=== PATIENT | female | born 1985 | race Caucasian/White ===

== ENCOUNTER 2016-06-28 08:39 | Emergency (ER) | payer MEDICAID ==
[~2016-06-28 08:39] MED LIST: ABILIFY5 MG PO; ALBUTEROL SULF8.5 GM IH; ALLERGY RELIEF10 M3 PO; CLONAZEPAM PO; CLONAZEPAM0.5 M2 PO; EFFEXOR XR37.5 MG; EFFEXOR37.5 MG; EXCEDRIN CAPLET1 TAB; EXCEDRIN TABLET1 TAB; FETZIMA40 M1 PO; HYDROXYZINE HCL50 MG PO; IBUPROFEN800 M1 PO; KLONOPIN0.5 M1 PO; LAMICTAL PO; LAMICTAL25 M2 PO; LEVAQUIN250 MG PO; NO HOME MEDICATION XX; NORCO 5-325 TA1 EACH PO; NORCO 5/325 TAB1 TAB PO; PAROXETINE; PAXIL30 MG PO; PRENATAL1 TAB; PROAIR HFA8.5 GM INH; PROVENTIL0.83 MG/ML IH; PROZAC20 M1 PO; PROZAC20 MG PO; REXULTI2 MG PO; ROBAXIN750 MG/TA1 PO; STRATTERA25 MG PO; VICODIN 5/500 T1 TAB PO; VIIBRYD40 MG PO
[2016-06-28] MEDS ORDERED: LAMICTAL100 M2 PO (08:42)
[2016-06-28] MEDS ORDERED: CATAPRES0.1 M1 PO (08:43)
[2016-06-28 09:40] LABS: BASO % 0.4 % (0-2); EOS % 2.8 % (0-7); EOSINOPHIL ABSOLUTE COUNT 0.2 tho/cmm (0.0-0.7); HCT-HEMATOCRIT 44.1 % (34.0-49.0); HGB-HEMOGLOBIN 15.2 gm/dl (12.0-15.5); IMMATURE GRANULOCYTES ABSOLUTE 0.01 tho/cmm (0-0.03); IMMATURE GRANULOCYTES PERCENT 0.2 % (0-0.3); LYMPH % 26.2 % (20-45); LYMPH ABSOLUTE COUNT 1.5 tho/cmm (0.8-4.5); MCHC MEAN CORPUSCULAR HGB CONC 34.5 % (32.0-36.0); MEAN PLATELET VOLUME 10.3 cmc (9.4-12.4); MONO % 4.6 % (0-12); MONOCYTE ABSOLUTE COUNT 0.3 tho/cmm (0.0-1.2); NEUTROPHIL ABSOLUTE COUNT 3.7 tho/cmm (1.6-8.0); NEUTROPHIL-AUTOMATED 3.7 tho/cmm (1.6-8.0); NEUTROPHILS % 65.8 % (40-80); PLATELET COUNT 205 tho/cmm (150-450); RED BLOOD COUNT 5.07 mil/cmm (4.00-5.20); RED CELL DISTRIBUTION WIDTH 13.4 % (12.4-16.4); WHITE BLOOD COUNT 5.7 tho/cmm (4.0-10.0)
[2016-06-28 09:47] LABS: ANION GAP 12 mmol/L (0-20); BLOOD UREA NITROGEN 8 mg/dl (6-24); CALCIUM 8.9 mg/dl (8.5-10.5); CARBON DIOXIDE-VENOUS 26 mmol/L (22-32); CHLORIDE 107 mmol/l (96-110); CREATININE 0.82 mg/dl (0.50-1.10); GLUCOSE 117 mg/dL (70-110); SODIUM 141 mmol/L (135-145); eGFR VALUE FOR BLACK >90 mL/Min
[2016-06-28 09:53] LABS: URINE BILIRUBIN NEGATIVE (NEG); URINE BLOOD SMALL (NEG); URINE GLUCOSE (UA) NEGATIVE (NEG); URINE KETONE NEGATIVE (NEG); URINE LEUKOCYTE ESTERASE POSITIVE (NEG); URINE NITRITE NEGATIVE (NEG); URINE PROTEIN NEGATIVE (NEG)
[2016-06-28 09:54] LABS: URINE APPEARANCE HAZY; URINE COLOR YELLOW
[2016-06-28 10:01] LABS: URINE WBC 15-20 /[HPF] (0-5)
[2016-06-28] MEDS ORDERED: OXYCODONE-ACET1 EAC3 PO (12:51)
[2016-07-12] MEDS ORDERED: HALOPERIDOL5 M1 PO (11:55)
[2016-07-12] MEDS ORDERED: PERCOCET 5-3251 EACH PO (11:55)
[2016-07-12] MEDS ORDERED: EXCEDRIN MIGRA1 EAC3 PO (11:56)
[2016-07-12] MEDS ORDERED: VENTOLIN HFA18 G2 PO (12:00)
[2016-09-08] MEDS ORDERED: ABILIFY5 M1 PO (17:45)
[2016-09-08] MEDS ORDERED: LEXAPRO10 M2 PO (17:45)
[2016-09-08] MEDS ORDERED: WELLBUTRIN XL150 M1 PO (17:46)
== END 2016-06-28 13:07 ==
LOC: EDMED 08:39
PROVIDERS: Emergency Medicine
DX: D27.0 Benign neoplasm of right ovary (principal); F17.210 Nicotine dependence, cigarettes, uncomplicated
CPT/HCPCS: Q9967

== ENCOUNTER 2016-07-14 08:59 | Day surgery (SDC) | payer MEDICAID ==
[~2016-07-14 08:59] MED LIST changes: +CATAPRES0.1 M1 PO; +EXCEDRIN MIGRA1 EAC3 PO; +HALOPERIDOL5 M1 PO; +LAMICTAL100 M2 PO; +OXYCODONE-ACET1 EAC3 PO; +PERCOCET 5-3251 EACH PO; +VENTOLIN HFA18 G2 PO
[2016-07-14 09:26] LABS: BASO % 0.3 % (0-2); EOS % 3.8 % (0-7); EOSINOPHIL ABSOLUTE COUNT 0.2 tho/cmm (0.0-0.7); HCT-HEMATOCRIT 44.2 % (34.0-49.0); HGB-HEMOGLOBIN 15.6 gm/dl (12.0-15.5); IMMATURE GRANULOCYTES ABSOLUTE 0.01 tho/cmm (0-0.03); IMMATURE GRANULOCYTES PERCENT 0.2 % (0-0.3); LYMPH ABSOLUTE COUNT 1.4 tho/cmm (0.8-4.5); MCH (MEAN CORPUSCULAR HGB) 30.5 pg (28.0-32.0); MCHC MEAN CORPUSCULAR HGB CONC 35.3 % (32.0-36.0); MCV (MEAN CELL VOLUME) 86.5 fl (82.0-96.0); MONO % 5.5 % (0-12); MONOCYTE ABSOLUTE COUNT 0.3 tho/cmm (0.0-1.2); NEUTROPHILS % 66.2 % (40-80); PLATELET COUNT 206 tho/cmm (150-450); RED BLOOD COUNT 5.11 mil/cmm (4.00-5.20); RED CELL DISTRIBUTION WIDTH 13.5 % (12.4-16.4)
[2016-09-08] MEDS ORDERED: LEXAPRO10 M2 PO (17:45)
[2016-09-08] MEDS ORDERED: ABILIFY5 M1 PO (17:45)
[2016-09-08] MEDS ORDERED: WELLBUTRIN XL150 M1 PO (17:46)
== END 2016-07-14 15:10 ==
LOC: SHSB 08:59 → ORW 11:37 → PACU 12:42 → SHSB 13:10
PROVIDERS: Obstetrics & Gynecology
PROC: 0UB54ZZ Excision of Right Fallopian Tube, Percutaneous Endoscopic Approach (ICD-10-PCS; principal; 2016-07-14)
DX: D27.0 Benign neoplasm of right ovary (principal); N80.1 Endometriosis of ovary; N83.11 Corpus luteum cyst of right ovary; N73.6 Female pelvic peritoneal adhesions (postinfective); F25.0 Schizoaffective disorder, bipolar type; F41.9 Anxiety disorder, unspecified; F17.210 Nicotine dependence, cigarettes, uncomplicated; J45.990 Exercise induced bronchospasm; Z88.2 Allergy status to sulfonamides; Z90.49 Acquired absence of other specified parts of digestive tract; Z79.899 Other long term (current) drug therapy; Z98.890 Other specified postprocedural states
CPT/HCPCS: J7030

== ENCOUNTER 2016-07-22 19:37 | Emergency (ER) | payer MEDICAID ==
[2016-07-22] MEDS ORDERED: AUGMENTIN 875-1 EAC2 PO (20:05)
[2016-09-08] MEDS ORDERED: ABILIFY5 M1 PO (17:45)
[2016-09-08] MEDS ORDERED: LEXAPRO10 M2 PO (17:45)
[2016-09-08] MEDS ORDERED: WELLBUTRIN XL150 M1 PO (17:46)
== END 2016-07-22 20:19 ==
LOC: EDMED 19:37
DX: J32.9 Chronic sinusitis, unspecified (principal); J45.909 Unspecified asthma, uncomplicated; F25.9 Schizoaffective disorder, unspecified; F41.9 Anxiety disorder, unspecified; Z88.2 Allergy status to sulfonamides; Z88.6 Allergy status to analgesic agent; F17.200 Nicotine dependence, unspecified, uncomplicated

== ENCOUNTER 2016-08-14 09:03 | Emergency (ER) | payer MEDICAID ==
[~2016-08-14 09:03] MED LIST changes: +AUGMENTIN 875-1 EAC2 PO
[2016-08-14 10:14] LABS: URINE BILIRUBIN NEGATIVE (NEG); URINE BLOOD LARGE (NEG); URINE GLUCOSE (UA) NEGATIVE (NEG); URINE KETONE SMALL (NEG); URINE LEUKOCYTE ESTERASE POSITIVE (NEG); URINE NITRITE NEGATIVE (NEG); URINE PROTEIN MODERATE (NEG)
[2016-08-14 10:16] LABS: URINE APPEARANCE CLOUDY; URINE COLOR YELLOW
[2016-08-14 10:20] LABS: URINE RBC 30-35 /[HPF] (0-5)
[2016-08-14 10:21] LABS: URINE AMORPHOUS 1+; URINE BACTERIA 1+; URINE MUCUS 1+
[2016-08-14] MEDS ORDERED: CEPHALEXIN500 M1 PO (10:39)
[2016-09-08] MEDS ORDERED: ABILIFY5 M1 PO (17:45)
[2016-09-08] MEDS ORDERED: LEXAPRO10 M2 PO (17:45)
[2016-09-08] MEDS ORDERED: WELLBUTRIN XL150 M1 PO (17:46)
== END 2016-08-14 11:05 ==
LOC: EDMED 09:03
PROVIDERS: Emergency Medicine
DX: N39.0 Urinary tract infection, site not specified (principal); F32.9 Major depressive disorder, single episode, unspecified; E66.9 Obesity, unspecified; Z90.49 Acquired absence of other specified parts of digestive tract; Z98.890 Other specified postprocedural states